=== PATIENT | male | born 2000 | race Caucasian/White ===

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

== ENCOUNTER 2019-05-06 09:29 | Emergency (ER) | payer MEDICAID, OTHER ==
[2019-05-06 09:30] VITALS: BP 124/82
[2019-05-06] MEDS ORDERED: CEPH-264 PO (09:59)
[2019-05-06] MEDS ORDERED: DIPHTH,PERTUSS(ACELL),TET TOX 0.5 ML DISP.SYRIN. VAX IM ONE (10:00)
[2019-05-06] MEDS ORDERED: HYDROcodone/APAP 5/325MG 1 TAB TABLET PO ONE (10:00)
[2019-05-06] MEDS ORDERED: CEPHALEXIN 250 MG CAPSULE PO ONE (10:00)
--- NOTE | 2019-05-06 10:07 | ED.ADGEN ---
Past History Past Medical History: No Pertinent History Past Surgical History: No Surgical History Alcohol Use: Occasionally Drug Use: None Adult General Chief Complaint Chief Complaint Right leg laceration HPI HPI Patient is a 19-year-old male who presents for evaluation of right leg laceration. Patient was playing with a pocket knife last when he was cut the right leg. Injury occurred greater than 12 hours prior to ED arrival. Last known tetanus is unknown. Patient has been treating with peroxide but decided to get it evaluated this morning.[] Review of Systems Review of Systems Review symptoms as prescribed. All other systems were reviewed and found to be within normal limits, except as documented in this note. Current Medications Current Medications Current Medications Medications (Trade) Dose Ordered Sig/Rosalinda Start Time Stop Time Status Last Admin Dose Admin Acetaminophen/ Hydrocodone Bitart (Lortab 5/325) 1 tab 1X ONCE 05/06/19 10:00 05/06/19 10:01 DC Cephalexin HCl (Keflex) 500 mg 1X ONCE 05/06/19 10:00 05/06/19 10:01 DC Diphtheria/ Tetanus/Acell Pertussis (Boostrix) 0.5 ml ONCE ONCE 05/06/19 10:00 05/06/19 10:01 DC Allergies Allergies Allergies Coded Allergies Type Severity Reaction Last Updated Verified No Known Drug Allergies 05/06/19 No Physical Exam Physical Exam Constitutional: Well developed, well nourished, no acute distress, non-toxic appearance. [] HENT: Normocephalic, atraumatic, bilateral external ears normal, oropharynx moist, no oral exudates, nose normal. [] Eyes: PERRLA, EOMI, conjunctiva normal, no discharge. [] Extremities: Right leg, 3 cm full thickness horizontal laceration to anterior distal tibia approximately 15 cm proximal to ankle. Wound is clean, dry and no active bleeding. No tendons or vasculature exposed [] Neurologic: Alert and oriented X 3, normal motor function, normal sensory function, no focal deficits noted. [] Psychologic: Affect normal, judgement normal, mood normal. [] Current Patient Data Vital Signs Vital Signs Date Time Temp Pulse Resp B/P (MAP) Pulse Ox O2 Delivery O2 Flow Rate FiO2 05/06/19 09:30 98.1 78 18 98 Room Air EKG EKG [] Radiology/Procedures Radiology/Procedures [Laceration repair procedure note Discuss with patient the options of healing by secondary intention versus refreshing wound edges and primary closure with britt. Patient requests wound because the emergency department. Wound edges do provided with surgical scrub brush and wound closed with #3 britt. Tetanus updated.] Course & Med Decision Making Course & Med Decision Making Pertinent Labs and Imaging studies reviewed. (See chart for details) [Wound cleansed and closed.] Final Impression Final Impression [#1 right leg laceration] Denise Disclaimer Dragon Disclaimer This electronic medical record was generated, in whole or in part, using a voice recognition dictation system. MELVI SPARKS DO May 06, 2019 10:07
== END 2019-05-06 10:12 | disposition home or self-care (01) ==
LOC: ER 09:29
DX: S81.811A Laceration without foreign body, right lower leg, initial encounter (principal); W26.0XXA Contact with knife, initial encounter; Y93.89 Activity, other specified; Y92.89 Other specified places as the place of occurrence of the external cause; Y99.8 Other external cause status
CPT/HCPCS: 12002; 90471; 90715; 99283

== ENCOUNTER 2019-05-13 16:25 | Emergency (ER) | payer MEDICAID ==
[~2019-05-13] VITALS: Ht 157.5 cm; Wt 52.1 kg
[~2019-05-13 16:25] MED LIST: CEPH-264 PO
--- NOTE | 2019-05-13 17:14 | PHYS DOC ---
Past History Past Medical History: No Pertinent History Past Surgical History: No Surgical History Alcohol Use: Occasionally Drug Use: None Adult General Chief Complaint Chief Complaint: WOUND CHECK [facility] HPI Patient is a 19 year old M who presents to check. 70s ago he cut his lower right leg with a pocketknife. 3 britt were placed. Today he noticed mild redness around the britt. There is no redness around the remainder of the wound. There is no drainage. There is no swelling. There is no increased pain. There is no warmth to the area. He has no other associated symptoms. Review of Systems Review of Systems Constitutional: Denies fever or chills [] Eyes: Denies change in visual acuity, redness, or eye pain [] HENT: Denies nasal congestion or sore throat [] Respiratory: Denies cough or shortness of breath [] Cardiovascular: No additional information not addressed in HPI [] GI: Denies abdominal pain, nausea, vomiting, bloody stools or diarrhea [] : Denies dysuria or hematuria [] Musculoskeletal: Denies back pain or joint pain [] Integument: Negative except history of present illness Neurologic: Denies headache, focal weakness or sensory changes [] Endocrine: Denies polyuria or polydipsia [] All other systems were reviewed and found to be within normal limits, except as documented in this note. Family History Family History No pertinent family medical history was reported Current Medications Current Medications No current medications Allergies Allergies Allergies Coded Allergies Type Severity Reaction Last Updated Verified No Known Drug Allergies 05/06/19 No Physical Exam Physical Exam Constitutional: Well developed, well nourished, no acute distress, non-toxic appearance. [] HENT: Normocephalic, atraumatic, bilateral external ears normal, oropharynx moist, no oral exudates, nose normal. [] Eyes: PERRLA, EOMI, conjunctiva normal, no discharge. [] Neck: Normal range of motion, no tenderness, supple, no stridor. [] Cardiovascular:Heart rate regular rhythm, no murmur [] Lungs & Thorax: Bilateral breath sounds clear to auscultation [] Abdomen: Bowel sounds normal, soft, no tenderness, no masses, no pulsatile masses. [] Skin: Warm, dry, no erythema, no rash. [] R lower leg 3 britt with mild surrounding erythema Back: No tenderness, no CVA tenderness. [] Extremities: No tenderness, no cyanosis, no clubbing, ROM intact, no edema. [] Neurologic: Alert and oriented X 3, normal motor function, normal sensory function, no focal deficits noted. [] Psychologic: Affect normal, judgement normal, mood normal. [] Current Patient Data Vital Signs Vital Signs Date Time Temp Pulse Resp B/P (MAP) Pulse Ox O2 Delivery O2 Flow Rate FiO2 05/13/19 16:41 98.5 84 97 EKG EKG [] Radiology/Procedures Radiology/Procedures [] Course & Med Decision Making Course & Med Decision Making Pertinent Labs and Imaging studies reviewed. (See chart for details) [] Dragon Disclaimer Dragon Disclaimer This electronic medical record was generated, in whole or in part, using a voice recognition dictation system. Departure Departure: Impression: Primary Impression: Encounter for wound re-check Disposition: 01 HOME, SELF-CARE Condition: STABLE Referrals: PCPMARY (PCP) Patient Instructions: Wound Check Additional Instructions: Cesar was seen in the emergency Department for a wound check. No emergency medical condition was found on history or physical exam. He is advised to return to the emergency room in the next 3-5 days to have his britt removed. Is also advised to return as soon as possible if he develops new or worsening symptoms. SUMEET LUEVANO MD May 13, 2019 17:13
[2019-05-13 17:31] VITALS: BP 118/67
== END 2019-05-13 17:15 | disposition home or self-care (01) ==
LOC: ER 16:25
DX: S81.811D Laceration without foreign body, right lower leg, subsequent encounter (principal); W26.0XXD Contact with knife, subsequent encounter
CPT/HCPCS: 99281

== ENCOUNTER 2019-05-15 15:06 | Emergency (ER) | payer MEDICAID ==
[~2019-05-15] VITALS: Ht 157.5 cm; Wt 52.1 kg
[2019-05-15 15:10] VITALS: BP 114/62
--- NOTE | 2019-05-15 15:14 | PHYS DOC ---
Past History Past Medical History: No Pertinent History Past Surgical History: No Surgical History Smoking: Cigarettes Alcohol Use: Occasionally Drug Use: None Adult General Chief Complaint Chief Complaint: SUTURE/STAPLE REMOVAL HPI HPI Pt is a 19 y/o male who presents for staple removal after they were placed in 10 days ago. There are 3 shauna located on his right leg. Review of Systems Review of Systems Constitutional: Denies fever or chills Eyes: Denies redness or eye pain HENT: Denies nasal congestion or sore throat Respiratory: Denies cough or shortness of breath Cardiovascular: Denies chest pain or palpitations GI: Denies abdominal pain, nausea, or vomiting : Denies dysuria or hematuria Musculoskeletal: Denies back pain or joint pain Integument: Reports 3 shauna on right leg Neurologic: Denies headache, focal weakness or sensory changes Complete systems were reviewed and found to be within normal limits, except as documented in this note. Allergies Allergies Allergies Coded Allergies Type Severity Reaction Last Updated Verified No Known Drug Allergies 05/06/19 No Physical Exam Physical Exam Constitutional: Well developed, well nourished, no acute distress, non-toxic appearance HENT: Normocephalic, atraumatic, oropharynx moist Cardiovascular: Heart rate normal, regular rhythm Lungs & Thorax: Bilateral breath sounds clear to auscultation, no wheezing Abdomen: Soft, no tenderness Skin: 3 shauna present on right anterior chan, mild erythema and swelling, no drainage or exudate Back: No tenderness, no CVA tenderness Extremities: ROM intact, no edema Neurologic: Alert and oriented X 3, normal motor function, normal sensory function, no focal deficits noted Psychologic: Affect normal, judgement normal, mood normal EKG EKG [] Radiology/Procedures Radiology/Procedures [] Course & Med Decision Making Course & Med Decision Making Pt is a 19 y/o male who presents for staple removal. 3 Shauna were removed from right lower leg. Will put Neosporin and diana bandage to reduce chance of reopening wound. Patient stable for discharge with outpatient follow-up with PCP. Discussed findings and plan with patient, who acknowledge understanding and agreement. Dragon Disclaimer Dragon Disclaimer This electronic medical record was generated, in whole or in part, using a voice recognition dictation system. Additional Procedures Progress Staple removal: Verbal consent obtained. Time out performed. Hand hygiene utilized. Nome x 3 removed successfully from right leg. Patient tolerated procedure well and without difficulty. Empiric antibiotic ointment applied prior to sterile dressing and DIANA bandage. Departure Departure: Impression: Primary Impression: Encounter for staple removal Disposition: 01 HOME, SELF-CARE Condition: STABLE Referrals: PCPMARY (PCP) Patient Instructions: Staple Removal, Care After, Sterile Tape Wound Closure SLOAN VENTURA DO May 15, 2019 15:14
[2019-05-15] MEDS ORDERED: NEOMY/BACITR/POLYMYXIN OINT PACKET. TP ONE (15:15)
== END 2019-05-15 15:40 | disposition home or self-care (01) ==
LOC: ER 15:11
DX: S81.811D Laceration without foreign body, right lower leg, subsequent encounter (principal); X58.XXXD Exposure to other specified factors, subsequent encounter
CPT/HCPCS: 99283

== ENCOUNTER 2019-05-17 18:55 | Emergency (ER) | payer MEDICAID ==
[~2019-05-17] VITALS: Ht 157.5 cm; Wt 54.4 kg
[2019-05-17 19:11] VITALS: BP 90/52
--- NOTE | 2019-05-17 20:20 | PHYS DOC ---
Past History Past Medical History: No Pertinent History Past Surgical History: No Surgical History Alcohol Use: Occasionally Drug Use: None Adult General Chief Complaint Chief Complaint: WOUND CHECK HPI HPI 19-year-old male coming by his mother presents with concern of a right lower leg wound. He was seen in this emergency room by my colleague and had 3 britt. Staple removal 3 days ago and the wound has opened up. It had some bleeding which has resolved. The patient's mother is concerned that one may continue help enough. His had a small amount of bleeding from one area. That is now resolved. The patient has no other concerns or complaints. Review of Systems Review of Systems Constitutional: Denies fever or chills [] Eyes: Denies change in visual acuity, redness, or eye pain [] HENT: Denies nasal congestion or sore throat [] Respiratory: Denies cough or shortness of breath [] Cardiovascular: No additional information not addressed in HPI [] GI: Denies abdominal pain, nausea, vomiting, bloody stools or diarrhea [] : Denies dysuria or hematuria [] Musculoskeletal: Denies back pain or joint pain [] Integument: Healing laceration of the right lower leg[] Neurologic: Denies headache, focal weakness or sensory changes [] Endocrine: Denies polyuria or polydipsia [] All other systems were reviewed and found to be within normal limits, except as documented in this note. Allergies Allergies Allergies Coded Allergies Type Severity Reaction Last Updated Verified No Known Drug Allergies 05/06/19 No Physical Exam Physical Exam Constitutional: Well developed, well nourished, no acute distress, non-toxic appearance. [] HENT: Normocephalic, atraumatic, bilateral external ears normal, oropharynx mo ist, no oral exudates, nose normal. [] Eyes: PERRLA, EOMI, conjunctiva normal, no discharge. [] Neck: Normal range of motion, no tenderness, supple, no stridor. [] Cardiovascular:Heart rate regular rhythm, no murmur [] Lungs & Thorax: Bilateral breath sounds clear to auscultation [] Abdomen: Bowel sounds normal, soft, no tenderness, no masses, no pulsatile masses. [] Skin: 3 cm laceration right lower leg. Evidence of previous britt, incomplete closure, delayed healing. No active bleeding[] Back: No tenderness, no CVA tenderness. [] Extremities: No tenderness, no cyanosis, no clubbing, ROM intact, no edema. [] Neurologic: Alert and oriented X 3, normal motor function, normal sensory function, no focal deficits noted. [] Psychologic: Affect normal, judgement normal, mood normal. [] Current Patient Data Vital Signs Vital Signs Date Time Temp Pulse Resp B/P (MAP) Pulse Ox O2 Delivery O2 Flow Rate FiO2 05/17/19 19:11 98.1 65 18 98 Room Air EKG EKG [] Radiology/Procedures Radiology/Procedures [] Course & Med Decision Making Course & Med Decision Making Pertinent Labs and Imaging studies reviewed. (See chart for details) Mr. my exam, I believe the wound will heal on its own as it is. I have offered to put a couple of white Steri-Strips over the wound to help prevent further expansion of the wound. I believe the wound will remain closed without this, but the additional Steri-Strips won't hurt. The patient's mother is reassured by this. He is stable for discharge at this time. [] Dragon Disclaimer Dragon Disclaimer This electronic medical record was generated, in whole or in part, using a voice recognition dictation system. Departure Departure: Impression: Primary Impression: Laceration of right lower leg Disposition: 01 HOME, SELF-CARE Condition: STABLE Referrals: PCP,NO (PCP) Patient Instructions: Stitches, Britt or Skin Adhesive Strips, [id number] Problem Qualifiers Primary Impression: Laceration of right lower leg Encounter type: subsequent encounter Qualified Codes: S81.811D - Laceration without foreign body, right lower leg, subsequent encounter MELVI CUMMINGS DO May 17, 2019 20:20
== END 2019-05-17 20:23 | disposition home or self-care (01) ==
LOC: ER 18:55
DX: S81.811D Laceration without foreign body, right lower leg, subsequent encounter (principal); X58.XXXD Exposure to other specified factors, subsequent encounter
CPT/HCPCS: 99282